=== PATIENT | female | born 1980 | race Asian ===

== ENCOUNTER → 2020-09-07 | Outpatient (CLI) | payer OTHER ==
[~2020-09-07] MED LIST: ISOVUE-370 76% 100ML VIAL As Ordered ONE
--- NOTE | 2020-09-07 18:24 | REPVR ---
PROCEDURE INFORMATION: Exam: CT Neck With Contrast Exam date and time: 09/07/2020 5:20 PM Age: 40 years old Clinical indication: Condition or disease; Other: Begin neoplasm of parotid glands TECHNIQUE: Imaging protocol: Computed tomography images of the neck with contrast. Radiation optimization: All CT scans at this facility use at least one of these dose optimization techniques: automated exposure control; mA and/or kV adjustment per patient size (includes targeted exams where dose is matched to clinical indication); or iterative reconstruction. Contrast material: ISOVUE 370; Contrast volume: 75 ml; Contrast route: INTRAVENOUS (IV); COMPARISON: No relevant prior studies available. FINDINGS: Nasopharynx: Unremarkable. Oropharynx: Unremarkable. No significant tonsillar enlargement. Hypopharynx: Unremarkable. Larynx: Unremarkable. Normal epiglottis. Retropharyngeal space: Unremarkable. Submandibular/Parotid glands: Heterogenous lesion in the right parotid gland measuring 1.6 x 1.3 x 1.9 cm with ill-defined margins and large calcifications. Thyroid: Normal. No enlarged or calcified nodules. Lymph nodes: Unremarkable. No lymphadenopathy. Trachea: Visualized trachea is unremarkable. Lungs: Unremarkable as visualized. Bones/joints: Unremarkable. No acute fracture. Soft tissues: Unremarkable. No significant soft tissue swelling. IMPRESSION: Heterogenous lesion in the right parotid gland measuring 1.6 x 1.3 x 1.9 cm with ill-defined margins and large calcifications. Differential includes pleomorphic adenoma/warthins tumor/mucoepidermoid carcinoma. ENT referral is recommended. Electronically signed by: Dean Browning On 09/07/2020 18:24:20 PM
== END ==
LOC: M RAD 17:03
PROVIDERS: ATTEND Otolaryngology
DX: D37.030 Neoplasm of uncertain behavior of the parotid salivary glands (principal)

== ENCOUNTER → 2020-10-23 | Outpatient (CLI) | payer OTHER ==
[~2020-10-23] MED LIST changes: -ISOVUE-370 76% 100ML VIAL As Ordered ONE; +LIDOCAINE 1% MDV 20ML VIAL As Ordered ONE; +MULT1TAB8 PO; +SODIUM BICARBONATE 8.4% INJ 50MEQ 50 ML VIAL As Ordered ONE
[2020-10-23 11:13] VITALS: BP 145/78
--- NOTE | 2020-10-23 18:45 | REP ---
INDICATION: RT PAROTID MASS. COMPARISON: None. TECHNIQUE: The procedure was performed by Anna Marie Harmon [facility], under the direct supervision of Dr. Mike. The risks and benefits of the procedure were explained to the patient and an informed consent was obtained both verbally and written. Directly prior to the start of the procedure a formal time-out was completed in the procedure room. FINDINGS: Using ultrasound guidance the right parotid mass was localized. Due to the location of the mass, and that it had a calcified rim it was determined that a fine needle aspiration would be the safest approach. The skin was prepped and draped in a sterile fashion. One mL of buffered lidocaine was used as a local anesthetic. Using ultrasound guidance a 8 fine needle aspirations were obtained using 25 gauge needles. Four specimens were sent to our lab here, and remaining 4 were sent out in RPMI solution, for further testing. The patient tolerated the procedure well and there were no immediate complications. After the appropriate amount of monitored convalescence the patient was discharged from the department. IMPRESSION: 1. Ultrasound-guided right parotid mass fine needle aspiration. <Electronically signed by Anna Marie Harmon > 10/23/20 1441 <Electronically signed by Trevin Mike > 10/23/20 1841
== END ==
LOC: M IRPRO 09:42
PROVIDERS: ATTEND Otolaryngology
DX: D37.030 Neoplasm of uncertain behavior of the parotid salivary glands (principal)

== ENCOUNTER 2021-01-29 08:25 | Observation (INO) | payer OTHER ==
[~2021-01-29] VITALS: Ht 157.5 cm; Wt 61.9 kg
[~2021-01-29 08:25] MED LIST changes: +CVS1CAP2 PO; +D31000TA2 PO; +FISH1000 PO; -LIDOCAINE 1% MDV 20ML VIAL As Ordered ONE; +LIDOCAINE 1% MDV 20ML VIAL SQ PRN; +LR 1,000 ML IV ONE; -SODIUM BICARBONATE 8.4% INJ 50MEQ 50 ML VIAL As Ordered ONE; +dexameTHASONE 4 MG/ML 1ML VIAL (J1100 PER 1MG) IV ONE
--- OUTSIDE RECORDS SUMMARY | 2021-01-29 08:30 | CCD | Continuity of Care Document ---
Author Author Idalia VILLARREAL MD Organization Unknown Address [address] [address] Phone [phone] Care Team Providers Care Medical Office Representative Name Role Phone MontanaMaria Eugenia Michelle Carter AUTM Problems Description No Information Available Social History Type Date Description Comments Sex Unknown ETOH Use Denies alcohol use Tobacco Use Start: Unknown Denies Smoking Recreational Drug Use Denies Drug Use Allergies, Adverse Reactions, Alerts Description No Known Drug Allergies Medications Active Medications SIG Qnty Indications Ordering Provide r Date Calcium Unknown Vitamin D-3 25mcg (1000 Ut) Capsules Unknown One-A-Day Womens Tablets 1 by mouth every day Unknown Fish Oil 1000mg Capsules Unknown Immunizations Description No Information Available Vital Signs Date Vital Result Comment 11/14/2020 7:09am Height 62 inches 5'2" Weight 103.00 lb BMI (Body Mass Index) 18.8 kg/m2 [place] Body Weight 110 lb Weight 46.721 kg BSA (Body Surface Area) 1.44 m2 09/19/2020 9:06am Height 62 inches 5'2" Weight 103.00 lb BMI (Body Mass Index) 18.8 kg/m2 [place] Body Weight 110 lb Weight 46.721 kg BSA (Body Surface Area) 1.44 m2 Results Test Acquired Date Facility Test Result H/L Range Note Laboratory test finding 10/23/2020 [facility] Main Lab [address] [place] [address] [phone] Non Homeworker/Cytology Req For Servi (SEE NOTE) 1 1 SPECIMEN: FNA Rig ht parotid PRMI and Cytolyt (clear) received SPECIMEN ADEQUACY: Satisfactory for evaluation CATEGORIZATION: Non-diagnostic DESCRIPTIONS: Specimen consists mainly of scattered lymphocytes and acellular debris. 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 Office Visit 09/19/2020 9:00a [facility] Vasiliy Villarreal MD 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 Office Visit 08/22/2020 10:30a [facility] Vasiliy Villarreal MD 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 Assessments Date Code Description Provider 11/14/2020 D37.030 Neoplasm of uncertai n behavior of the parotid salivary glands Vasiliy Villarreal MD 09/19/2020 D37.030 Neoplasm of uncertai n behavior of the parotid salivary glands Vasiliy Villarreal MD 09/19/2020 D49.0 Neoplasm of unspecified behavior of digestive system Vasiliy Villarreal MD 08/22/2020 D37.030 Neoplasm of uncertai n behavior of the parotid salivary glands Vasiliy Villarreal MD 08/22/2020 D49.0 Neoplasm of unspecified behavior of digestive system Vasiliy Villarreal MD Plan of Treatment Future Appointment(s):* 01/08/2021 10:45 am - Cuate Lott MD at [facility] * 01/08/2021 10:45 am - Vasiliy Villarreal MD at [facility] 11/14/2020 - Vasiliy Villarreal MD* 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 Management options include careful observation with repeat FNA versus right superficial parotidectomy with facial nerve preservation and intra-op facial nerve monitoring. Risks of surgery include but not limited to bleeding, infection, injury to facial nerve leading to transient or permanent facial paralysis, injury to contents of carotid space, seroma, skin numbness or paresthesia, Alberto's syndrome, recurrence of tumor and need for more surgery. Patient un derstands and wishes to proceed. Functional Status Description No Information Available Mental Status Description No Information Available Referrals Refer to Dr Reason for Referral Status Appt Date Cherelle, Vasiliy Ortiz MD LOCALIZED SWELLING MASS & L UMP HEAD OFFICE CONSULT NEW OR ESTAB PT (1) 08/11/2020-02/07/2021 OFFICE / OUTPATIENT ESTAB MINIMAL MO (3) 08/11/2020-08/11/2021 Scheduled 08/22/[address] [address] [phone]
--- OUTSIDE RECORDS SUMMARY | 2021-01-29 08:30 | CCD ---
Author Author [facility] Organization [facility] Address Unknown Phone Unavailable Care Team Providers Care Chain Offbearer Name Role Phone Marquita COLON GANG KNIFE FISH CHOPPER Unavailable Unavailable LAROCK, Marquita LEES GANG KNIFE FISH CHOPPER Unavailable Unavailable LAROCK, Marquita LEES GANG KNIFE FISH CHOPPER Unavailable Unavailable LAROCK, Marquita LEES GANG KNIFE FISH CHOPPER Unavailable Unavailable LAROCK, Marquita LEES GANG KNIFE FISH CHOPPER Unavailable Unavailable LAROCK, Marquita LEES GANG KNIFE FISH CHOPPER Unavailable Unavailable LAROCK, Marquita LEES GANG KNIFE FISH CHOPPER Unavailable Unavailable LAROCK, Marquita LEES GANG KNIFE FISH CHOPPER Unavailable Unavailable LAROCK, Marquita LEES GANG KNIFE FISH CHOPPER Unavailable Unavailable LAROCK, Marquita LEES GANG KNIFE FISH CHOPPER Unavailable Unavailable LAROCK, Marquita LEES GANG KNIFE FISH CHOPPER Unavailable Unavailable LAROCK, Marquita LEES GANG KNIFE FISH CHOPPER Unavailable Unavailable LAROCK, Marquita LEES GANG KNIFE FISH CHOPPER Unavailable Unavailable LAROCK, Marquita LEES GANG KNIFE FISH CHOPPER Unavailable Unavailable LAROCK, Marquita LEES GANG KNIFE FISH CHOPPER Unavailable Unavailable LAROCK, Marquita LEES GANG KNIFE FISH CHOPPER Unavailable Unavailable LAROCK, Marquita LEES GANG KNIFE FISH CHOPPER Unavailable Unavailable LAROCK, Marquita LEES GANG KNIFE FISH CHOPPER Unavailable Unavailable LAROCK, Marquita LEES GANG KNIFE FISH CHOPPER Unavailable Unavailable LAROCK, Marquita LEES GANG KNIFE FISH CHOPPER Unavailable Unavailable LAROCK, Marquita LEES GANG KNIFE FISH CHOPPER Unavailable Unavailable LAROCK, Marquita LEES GANG KNIFE FISH CHOPPER Unavailable Unavailable Marika VILLARREAL MD Unavailable Unavailable Marika VILLARREAL MD Unavailable Unavailable Marika VILLARREAL MD Unavailable Unavailable Marika VILLARREAL MD Unavailable Unavailable Marika VILLARREAL MD Unavailable Unavailable Marika VILLARREAL MD Unavailable Unavailable Marika VILLARREAL MD Unavailable Unavailable Marika VILLARREAL MD Unavailable Unavailable Marika VILLARREAL MD Unavailable Unavailable Marika VILLARREAL MD Unavailable Unavailable Marika VILLRAREAL MD Unavailable Unavailable Marika VILLARREAL MD Unavailable Unavailable Marika VILLARREAL MD Unavailable Unavailable Marika VILLARREAL MD Unavailable Unavailable Marika VILLARREAL MD Unavailable Unavailable Marika VILLARREAL MD Unavailable Unavailable Marika VILLARREAL MD Unavailable Unavailable Marika VILLARREAL MD Unavailable Unavailable Marika VILLARREAL MD Unavailable Unavailable TELLY, C JERRICA MD Unavailable Unavailable TELLY, C JERRICA MD Unavailable Unavailable TELLY, C JERRICA MD Unavailable Unavailable TELLY, C JERRICA MD Unavailable Unavailable TELLY, C JERRICA MD Unavailable Unavailable TELLY, C JERRICA MD Unavailable Unavailable TELLY, C JERRICA MD Unavailable Unavailable TELLY, C JERRICA MD Unavailable Unavailable TELLY, C JERRICA MD Unavailable Unavailable TELLY, C JERRICA MD Unavailable Unavailable TELLY, C JERRICA MD Unavailable Unavailable TELLY, C JERRICA MD Unavailable Unavailable TELLY, C JERRICA MD Unavailable Unavailable TELLY, C JERRICA MD Unavailable Unavailable TELLY, C JERRICA MD Unavailable Unavailable Re-disclosure Warning The records that you are about to access may contain information from federally-assisted alcohol or drug abuse programs. If such information is present, then the following federally mandated warning applies: This information has been disclosed to you from records protected by federal confidentiality rules (42 CFR part 2). The federal rules prohibit you from making any further disclosure of this information unless further disclosure is expressly permitted by the written consent of the person to whom it pertains or as otherwise permitted by 42 CFR part 2. A general authorization for the release of medical or other information is NOT sufficient for this purpose. The Federal rules restrict any use of the information to criminally investigate or prosecute any alcohol or drug abuse patient.The records that you are about to access may contain highly sensitive health information, the redisclosure of which is protected by Article 27-F of the [facility] Public Health law. If you continue you may have access to information: Regarding HIV / AIDS; Provided by facilities licensed or operated by the [facility] Office of Mental Health; or Provided by the [facility] Office for People With Developmental Disabilities. If such information is present, then the following [facility] mandated warning applies: This information has been disclosed to you from confidential records which are protected by state law. State law prohibits you from making any further disclosure of this information without the specific written consent of the person to whom it pertains, or as otherwise permitted by law. Any unauthorized further disclosure in violation of state law may result in a fine or detention sentence or both. A general authorization for the release of medical or other information is NOT sufficient authorization for further disc losure. Encounters Encounter Providers Location Date Indications Data Source(s ) Outpatient Attender: JERRICA Villarreal/Chuy/Bolivar/Reind umu 11/14/2020 07:00:00 AM EDT [facility] ([facility]) Outpatient Attender: JERRICA Villarreal/Chuy/Bolivar/Demetriced umu 09/19/2020 09:00:00 AM EDT [facility] ([facility]) Outpatient Attender: NABEEL COLON NP 09/04 12:11:43 PM EDT - 09/15/2020 12:31:39 PM EDT [facility] ([facility] ) Outpatient Attender: JERRICA Villarreal/Chuy/Bolivar/Demetriced umu 08/22/2020 10:30:00 AM EDT [facility] ([facility]) Immunizations Vaccine Date Status Description Data Source(s) COVID-19 VACCINE Moderna 09/14/2020 12:00:00 AM EDT completed [facility] Vaccine Series Complete: NOThis Data was Submitted to [facility]. COVID-19 VACCINE Moderna 08/17/2020 12:00:00 AM EDT completed [facility] Vaccine Series Complete: YESThis Data wa s Submitted to [facility]. Medications No Information Insurance Providers Payer name Policy type / Coverage type Policy ID Covered green party ID Covered green party's relationship to zeng Policy Zeng Plan Information DEANGELO HATHAWAY/DEANGELO [id number] Self 01 [id number] [facility] [id number] [facility] [id number] Problems, Conditions, and Diagnoses No Information Surgeries/Procedures Procedure Description Date Indications Data Source(s) OFFICE OUTPATIENT VISIT 25 MINUTES 11/14/2020 12:00:00 AM EDT [facility] ([facility], ) OFFICE OUTPATIENT VISIT 15 MINUTES 09/19/2020 12:00:00 AM EDT [facility] ([facility]) OFFICE OUTPATIENT NEW 30 MINUTES 08/22/2020 12:00:00 A M EDT [facility] ([facility]) Results ID Date Data Source [id number] 10/23/2020 11:37:00 AM EDT [facility] ([facility]) Name Value Range Interpretation Code Description Data Charla rce(s) Supporting Document(s) Microscopic observation [Identifier] in Unspecified specimen by Non- gynecological cytology method Laboratory test result [facility] ([facility]) SPECIMEN: FNA Right parotid PRMI and Cytolyt (clear) received SPECIMEN ADEQUACY: Satisfactory for evaluation CATEGORIZATION: Non-diagnostic DESCRIPTIONS: Specimen consists mainly of scattered lymphocytes and acellular debris. COMMENTS: 10/24/2020 - 813 Signed MARIALUISA ANDERS(ASCP) 10/24/2020 0747 (Prelim) Signed JONAH SIDDIQUI MD 10/24/202014 Procedure Social History No Information Vital Signs ID Date Data Source UNK Name Value Range Interpretation Code Description Data Source(s) Body height 62 [in_i] 62 [in_i] [facility] ([facility]) 5'2" Body weight 103.00 [lb_av] 103.00 [lb_av] [facility] ([facility]) Body mass index (BMI) [Ratio] 18.8 kg/m2 18.8 k g/m2 [facility] ([facility]) Odum body weight 110 [lb_av] 110 [lb_av] [facility] ([facility]) Body weight 46.721 kg 46.721 kg [facility] ([facility]) Body surface area Derived from formula 1.44 m2 1.44 m2 [facility] ([facility]) Body height 62 [in_i] 62 [in_i] [facility] ([facility]) 5'2" Body weight 103.00 [lb_av] 103.00 [lb_av] [facility] ([facility]) Body surface area Derived from formula 1.44 m2 1.44 m2 [facility]) Body mass index (BMI) [Ratio] 18.8 kg/m2 18.8 k g/m2 [facility]) Odum body weight 110 [lb_av] 110 [lb_av] [facility] ([facility]) Body weight 46.721 kg 46.721 kg [facility] ([facility]) Body height 62 [in_i] 62 [in_i] [facility] 5'2" Body weight 103.00 [lb_av] 103.00 [lb_av] [facility] ([facility]) Body mass index (BMI) [Ratio] 18.8 kg/m2 18.8 k g/m2 [facility] ([facility]) Odum body weight 110 [lb_av] 110 [lb_av] [facility] ([facility]) Body weight 46.721 kg 46.721 kg [facility] ([facility]) Body surface area Derived from formula 1.44 m2 1.44 m2 [facility] ([facility]) Body surface area Derived from formula 1.44 m2 1.44 m2 [facility] ([facility]) Body weight 46.267 kg 46.267 kg [facility] ([facility]) Body height 62 [in_i] 62 [in_i] [facility] ([facility]) 5'2" Body weight 102.00 [lb_av] 102.00 [lb_av] [facility] ([facility]) Body mass index (BMI) [Ratio] 18.7 kg/m2 18.7 k g/m2 [facility] ([facility]) Odum body weight 110 [lb_av] 110 [lb_av] [facility] ([facility])
--- OUTSIDE RECORDS SUMMARY | 2021-01-29 08:30 | CCD | Continuity of Care Document ---
Author Author Idalia VILLARREAL MD Organization Unknown Address [address] [address] Phone [phone] Care Team Providers Care Naval Marine Engineer Name Role Phone MontanaMaria Eugenia Michelle Carter AUTM [phone] Problems Description No Information Available Social History [...] lb BMI (Body Mass Index) 18.8 kg/m2 [place] Body Weight 110 lb Weight 46.721 kg BSA (Body Surface Area) 1.44 m2 09/19/2020 9:06am Height 62 inches 5'2" Weight 103.00 lb BMI (Body Mass Index) 18.8 kg/m2 [place] Body Weight 110 lb Weight 46.721 kg BSA (Body Surface Area) 1.44 m2 Results Test Acquired Date Facility Test Result H/L Range Note Laboratory test finding 10/23/2020 [facility] Main Lab [address] [place] [address] [phone] Non Talent Acquisition Specialist/Cytology Req For Servi (SEE NOTE) 1 1 SPECIMEN: FNA Rig ht parotid PRMI and Cytolyt (clear) received SPECIMEN ADEQUACY: Satisfactory for evaluation CATEGORIZATION: Non-diagnostic DESCRIPTIONS: Specimen consists mainly of scattered lymphocytes and acellular debris. 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 Management options include careful observation with repeat FNA versus right parotidectomy with facial nerve preservation and intra-op facial nerve monitoring. Risks of surgery include but not limited to bleeding, infection, injury to facial nerve leading to transient or permanent facial paralysis, injury to contents of carotid space, seroma, skin numbness or paresthesia, Alberto's syndrome, recurrence of tumor and need for more surgery. Patient understands and wishes to proceed. Functional Status Description No Information Available Mental Status Description No Information Available Referrals Refer to Dr Reason for Referral Status Appt Date Vasiliy Villarrael MD LOCALIZED SWELLING MASS & L UMP HEAD OFFICE CONSULT NEW OR ESTAB PT (1) 08/11/2020-02/07/2021 OFFICE / OUTPATIENT ESTAB MINIMAL CT (3) 08/11/2020-08/11/2021 Scheduled 08/22/2020 [address] [place] [address] [phone]
[2021-01-29] MEDS ORDERED: ONDANSETRON 4MG/2ML VIAL As Ordered ONE (10:18)
[2021-01-29] MEDS ORDERED: METOCLOPRAMIDE INJ 10MG/2ML VIAL (J2765 PER 1) As Ordered ONE (10:18)
[2021-01-29] MEDS ORDERED: ROCURONIUM BROMIDE 50 MG/5 ML VIAL As Ordered ONE (10:18)
[2021-01-29] MEDS ORDERED: MIDAZOLAM INJ 2MG/2ML VIAL (J2250 PER 1MG) As Ordered ONE (10:18)
[2021-01-29] MEDS ORDERED: LIDOCAINE 2% 100MG/5ML SDV (FOR ANES.) As Ordered ONE (10:18)
[2021-01-29] MEDS ORDERED: ACETAMINOPHEN 1000MG 100ML IV BTL (OFIRMEV) (J0131 PER 10MG) As Ordered ONE (10:18)
[2021-01-29] MEDS ORDERED: fentaNYL 100 MCG/2 ML INJECTION (J3010) As Ordered ONE (10:18)
[2021-01-29] MEDS ORDERED: propofoL 200 MG/20 ML VIAL As Ordered ONE (10:18)
[2021-01-29] MEDS ORDERED: LIDOCAINE W/EPINEPHRINE 1% 20ML VIAL As Ordered ONE (10:22)
[2021-01-29] MEDS ORDERED: BACITRACIN OINTMENT 30GM TUBE As Ordered ONE (10:22)
[2021-01-29] MEDS ORDERED: EPINEPHrine 1MG/ML INJ 30ML MD-VIAL As Ordered ONE (13:10)
[2021-01-29] MEDS ORDERED: HYDROmorphone HCL 2 MG/ML 1ML VIAL As Ordered ONE (13:51)
[2021-01-29] MEDS ORDERED: CEFUROXIME INJ 1.5 GM VIAL (J0697 PER 750MG) As Ordered ONE (16:54)
[2021-01-29] MEDS ORDERED: PHENYLephrine 500MCG 5ML (100MCG/ML) SYRINGE As Ordered ONE (17:06)
[2021-01-29] MEDS ORDERED: ePHEDrine SULFATE 25 MG/5 ML(5MG/ML) SYRINGE As Ordered ONE (17:16)
[2021-01-29] MEDS ORDERED: DESFLURANE 240 ML INHALANT As Ordered ONE (17:21)
[2021-01-29] MEDS ORDERED: fentaNYL 100 MCG/2 ML INJECTION (J3010) IV PRN (19:55)
[2021-01-29] MEDS ORDERED: LR 1,000 ML IV SCH (19:55)
[2021-01-29] MEDS ORDERED: ONDANSETRON 4MG/2ML VIAL IV PRN (19:55)
[2021-01-29] MEDS ORDERED: oxyCODONE 5MG TAB PO PRN (19:55)
[2021-01-29 20:20] VITALS: BP 113/57
--- NOTE | 2021-01-29 20:43 | HPEPDOC ---
[facility] Medical History & Physical Date of Admission Jan 29, 2021 Date of Service: Jan 29, 2021 History and Physical CHIEF COMPLAINT: Postoperative observation HISTORY OF PRESENT ILLNESS: 40-year-old female underwent surgery with ENT doctor Bruce, AFTER the procedure asking for me to admit the patient for observation overnight in the PCU as the surgery was prolonged took about 7-8 hours to ensure no immediate postoperative competitions. I saw the patient in PACU she was awake and alert and is able to answer my questions appropriately she tells me she is feeling well she is not in any pain. PAST MEDICAL/SURGICAL HISTORY: She denies any past medical or surgical history SOCIAL HISTORY: Denies alcohol use Denies tobacco use Denies illicit drug use FAMILY HISTORY: Denies any family history of cancer unaware of any other past medical history in her parents or siblings ALLERGIES: Please see below. REVIEW OF SYSTEMS: 10 point review of systems complete all negative otherwise stated in HPI HOME MEDICATIONS: Please see below. PHYSICAL EXAMINATION: Constitutional: Pleasant, Awake and alert, in no apparent distress ENT: Sclera are clear. Respiratory: Lungs CTA bilaterally. No respiratory distress. No use of accessory muscles. Able to speak in full sentences Cardiovascular: RRR S1 and S2 are normal Gastrointestinal: Abdomen is soft, non distended, non tender Musculoskeletal: No lower extremity edema. Neurologic: No focal neurological deficit. Mental Status: A&O x3, normal affect Skin: Head is bandaged around her right parotid area postoperatively LABORATORY DATA: See below. IMAGING: See chart MICROBIOLOGY: Please see below. ASSESSMENT/PLAN 40-year-old female who underwent right parotidectomy with ENT on 01/29/21 admitted for post operative observation. # Post parotidectomy: Admit to PCU per ENT for observation overnight. 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 IV dexamethasone and cefuroxime per ENT. Wound care per ENT. Pain control with oxycodone. IVFs. # DVT prophylaxis: SCDs/TEDs A Youse[facility] Hospitalist Vital Signs Vital Signs Date Time Temp Pulse Resp B/P (MAP) Pulse Ox O2 Delivery O2 Flow Rate FiO2 01/29/21 20:05 98.1 86 16 110/60 (77) 99 Nasal Cannula 2.0 Home Medications Scheduled Cholecalciferol (Vitamin D3) (Vitamin D3) 1,000 Unit Tablet, 2,000 UNITS PO DAILY Lactobacillus Combo No.10 (Probiotic) 1 Each Capsule, 1 CAP PO DAILY Multivitamin (Multi-Vitamin Daily) 1 Each Tablet, 1 TAB PO DAILY Harvey-3 Fatty Acids/Fish Oil (Fish Oil 1,000 mg Capsule) 1 Each Capsule, 1,000 MG PO DAILY Allergies Coded Allergies: No Known Allergies (Unverified , 01/16/21) RAMON ISABEL MD Jan 29, 2021 20:43
[2021-01-29] MEDS: LR 1,000 ML IV SCH (20:47)
--- OUTSIDE RECORDS SUMMARY | 2021-01-29 20:51 | CCD ---
Author Author [facility] Organization [facility] Address Unknown Phone Unavailable Care Team Providers Care Customizer Name Role Phone Marquita COLON CATECHIST Unavailable Unavailable LAROCK, Marquita LEES CATECHIST Unavailable Unavailable LAROCK, Marquita LEES CATECHIST Unavailable Unavailable LAROCK, Marquita LEES CATECHIST Unavailable Unavailable LAROCK, Marquita LEES CATECHIST Unavailable Unavailable LAROCK, Marquita LEES CATECHIST Unavailable Unavailable LAROCK, Marquita LEES CATECHIST Unavailable Unavailable LAROCK, Marquita LEES CATECHIST Unavailable Unavailable LAROCK, Marquita LEES CATECHIST Unavailable Unavailable LAROCK, Marquita LEES CATECHIST Unavailable Unavailable LAROCK, Marquita LEES CATECHIST Unavailable Unavailable LAROCK, Marquita LEES CATECHIST Unavailable Unavailable LAROCK, Marquita LEES CATECHIST Unavailable Unavailable LAROCK, Marquita LEES CATECHIST Unavailable Unavailable LAROCK, Marquita LEES CATECHIST Unavailable Unavailable LAROCK, Marquita LEES CATECHIST Unavailable Unavailable LAROCK, Marquita LEES CATECHIST Unavailable Unavailable LAROCK, Marquita LEES CATECHIST Unavailable Unavailable LAROCK, Marquita LEES CATECHIST Unavailable Unavailable LAROCK, Marquita LEES CATECHIST Unavailable Unavailable LAROCK, Marquita LEES CATECHIST Unavailable Unavailable LAROCK, Marquita LEES CATECHIST Unavailable Unavailable Marika VILLARREAL MD Unavailable Unavailable [...] Unavailable Unavailable Marika VILLARREAL MD Unavailable Unavailable aMrika VILLARREAL MD Unavailable Unavailable Marika VILLARREAL MD [...] is protected by Article 27-F of the [facility] Public Health law. If you continue you may have access to information: Regarding HIV / AIDS; Provided by facilities licensed or operated by the [facility] Office of Mental Health; or Provided by the [facility] Office for People With Developmental Disabilities. If such information is present, then the following [facility] mandated warning applies: This information [...] law may result in a fine or alf sentence or both. A general authorization for the release of medical or other information is NOT sufficient authorization for further disc losure. Encounters Encounter Providers Location Date Indications Data Source(s ) Outpatient Attender: JERRICA Villarreal/Chuy/[place]/Reind umu 11/14/2020 07:00:00 AM EDT [facility] ([facility]) Outpatient Attender: JERRICA Villarreal/Chuy/[place]/Demetriced [facility] 09/19/2020 09:00:00 AM EDT [facility] ([facility]) Outpatient Attender: NABEEL COLON NP 09/04 12:11:43 PM EDT - 09/15/2020 12:31:39 PM EDT [facility] ([facility] ) Outpatient Attender: JERRICA Villarreal/Chuy/[place]/Demetriced [facility] 08/22/2020 10:30:00 AM EDT [facility] ([facility]) Immunizations Vaccine Date Status Description Data Source(s) COVID-19 VACCINE Moderna 09/14/2020 12:00:00 AM EDT completed [facility] Vaccine Series Complete: NOThis Data was Submitted to [facility] Via [facility]. COVID-19 VACCINE Moderna 08/17/2020 12:00:00 AM EDT completed [facility] Vaccine Series Complete: YESThis Data wa s Submitted to [facility] Via [employer]. Medications No Information Insurance Providers Payer name Policy type / Coverage type Policy ID Covered democrat ID Covered democrat's relationship to zeng Policy Zeng Plan Information DEANGELO HATHAWAY/DEANGELO [id number] Self 01 [id number] [facility] [id number] [facility] [id number] Problems, Conditions, and Diagnoses No Information Surgeries/Procedures Procedure Description Date Indications Data Source(s) OFFICE OUTPATIENT VISIT 25 MINUTES 11/14/2020 12:00:00 AM EDT [facility] ([facility], ) OFFICE OUTPATIENT VISIT 15 MINUTES 09/19/2020 12:00:00 AM EDT [facility] ([facility]) OFFICE OUTPATIENT NEW 30 MINUTES 08/22/2020 12:00:00 A M EDT [facility] ([facility]) Results ID Date Data Source [id number] 10/23/2020 11:37:00 AM EDT [facility] ([facility]) Name Value Range Interpretation Code Description Data Charla rce(s) Supporting Document(s) Microscopic observation [Identifier] in Unspecified specimen by Non- gynecological cytology method Laboratory test result [facility] ([facility]) SPECIMEN: FNA Right parotid PRMI and Cytolyt [...] Source(s) Body height 62 [in_i] 62 [in_i] [facility] ([facility]) 5'2" Body weight 103.00 [lb_av] 103.00 [lb_av] [facility] ([facility]) Body mass index (BMI) [Ratio] 18.8 kg/m2 18.8 k g/m2 [facility] ([facility]) [place] body weight 110 [lb_av] 110 [lb_av] [facility] ([facility]) Body weight 46.721 kg 46.721 kg [facility] ([facility]) Body surface area Derived from formula 1.44 m2 1.44 m2 [facility] ([facility]) Body height 62 [in_i] 62 [in_i] [facility] ([facility]) 5'2" Body weight 103.00 [lb_av] 103.00 [lb_av] [facility] ([facility]) Body surface area Derived from formula 1.44 m2 1.44 m2 [facility]) Body mass index (BMI) [Ratio] 18.8 kg/m2 18.8 k g/m2 [facility]) [place] body weight 110 [lb_av] 110 [lb_av] [facility] ([facility]) Body weight 46.721 kg 46.721 kg [facility] ([facility]) Body height 62 [in_i] 62 [in_i] [facility] 5'2" Body weight 103.00 [lb_av] 103.00 [lb_av] [facility] ([facility]) Body mass index (BMI) [Ratio] 18.8 kg/m2 18.8 k g/m2 [facility] ([facility]) [place] body weight 110 [lb_av] 110 [lb_av] [facility] ([facility]) Body weight 46.721 kg 46.721 kg [facility] ([facility]) Body surface area Derived from formula 1.44 m2 1.44 m2 [facility] ([facility]) Body surface area Derived from formula 1.44 m2 1.44 m2 [facility] ([facility]) Body weight 46.267 kg 46.267 kg [facility] ([facility]) Body height 62 [in_i] 62 [in_i] [facility] ([facility]) 5'2" Body weight 102.00 [lb_av] 102.00 [lb_av] [facility] ([facility]) Body mass index (BMI) [Ratio] 18.7 kg/m2 18.7 k g/m2 [facility] ([facility]) [place] body weight 110 [lb_av] 110 [lb_av] [facility] ([facility])
[2021-01-29] MEDS ORDERED: EMER1PAK PO (21:33)
[2021-01-29] MEDS ORDERED: HOME MED LIST COMPLETE! XX SCH (21:35)
[2021-01-29] MEDS: dexameTHASONE 4 MG/ML 1ML VIAL (J1100 PER 1MG) IV SCH (21:47)
[2021-01-29 22:20] VITALS: BP 113/62
[2021-01-30] VITALS (9 sets, daily range): BP systolic 98–130; BP diastolic 52–77
[2021-01-30 04:53] LABS: HEMATOCRIT 32.6 % (36.0-47.0); MEAN CORPUSCULAR HEMOGLOBIN 29.4 pg (27.0-33.0); MEAN CORPUSCULAR HGB CONC 33.7 g/dl (32.0-36.5); MEAN CORPUSCULAR VOLUME 87.2 fl (80.0-96.0); PLATELET COUNT, AUTOMATED 172 10^3/uL (150-450); RED BLOOD COUNT 3.74 10^6/uL (4.00-5.40); WHITE BLOOD COUNT 11.9 10^3/uL (4.0-10.0)
[2021-01-30] MEDS: LR 1,000 ML IV SCH (04:58)
[2021-01-30] MEDS: dexameTHASONE 4 MG/ML 1ML VIAL (J1100 PER 1MG) IV SCH (04:58)
[2021-01-30 05:14] LABS: ALBUMIN 2.9 GM/DL (3.2-5.2); ALT/SGPT 17 U/L (12-78); BILIRUBIN,TOTAL 0.5 MG/DL (0.2-1.0); BLOOD UREA NITROGEN 11 MG/DL (7-18); CALCIUM LEVEL 8.4 MG/DL (8.5-10.1); CARBON DIOXIDE LEVEL 29 MEQ/L (21-32); CHLORIDE LEVEL 109 MEQ/L (98-107); CREATININE FOR GFR 0.61 MG/DL (0.55-1.30); GLOMERULAR FILTRATION RATE > 60.0 (>58); GLUCOSE, FASTING 135 MG/DL (70-100); MAGNESIUM LEVEL 1.7 MG/DL (1.8-2.4); POTASSIUM SERUM 4.6 MEQ/L (3.5-5.1); SODIUM LEVEL 142 MEQ/L (136-145); TOTAL PROTEIN 5.7 GM/DL (6.4-8.2)
[2021-01-30] MEDS ORDERED: MAG SULF 1GM/100ML (MAG RUN) 1 GM in IV 1 EA IV ONE (09:00)
[2021-01-30] MEDS ORDERED: AUGM875T28 PO (13:40)
--- NOTE | 2021-01-30 15:19 | DS.PDOC ---
Discharge Summary General Date of Admission Jan 29, 2021 at 08:26 Date of Discharge 01/30/21 Discharge Summary PROCEDURES PERFORMED DURING STAY: right parotidectomy DISCHARGE DIAGNOSES: 1. s/p right parotidectomy for right parotid mass COMPLICATIONS/CHIEF COMPLAINT: Right Parotid Mass. HPI/Hospital Course: 40-year-old female underwent surgery with ENT doctor Bruce, AFTER the procedure request to admit the patient for observation overnight in the PCU as the surgery was prolonged took about 7-8 hours to ensure no immediate postoperative competitions. Admit to PCU per ENT for observation overnight. 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 IV dexamethasone and cefuroxime per ENT. Wound care per ENT. Pain control with oxycodone. IVFs. The following day patient was seen and examined at bedside. No acute overnight events reported. Patient voice no medical complaints. Case discussed with ENT, with recommendations for discharge home with oral antibiotics, and outpatient follow up. DISCHARGE MEDICATIONS: Please see below. ALLERGIES: Please see below. PHYSICAL EXAMINATION ON DISCHARGE: General: Pleasant, Awake and alert, in no apparent distress ENT: Sclera are clear. Respiratory: Lungs CTA bilaterally. No respiratory distress. No use of accessory muscles. Able to speak in full sentences Cardiovascular: RRR S1 and S2 are normal Gastrointestinal: Abdomen is soft, non distended, non tender Musculoskeletal: No lower extremity edema. Neurologic: No focal neurological deficit. Mental Status: A&O x3, normal affect Skin: Head is bandaged around her right parotid area postoperatively LABORATORY DATA: Please see below. ACTIVITY: [As tolerated]. DISPOSITION: 01 Home, Self-Care. DISCHARGE INSTRUCTIONS: 1. Follow up with PCP in 3-5 days. 2. Follow up with ENT as directed. DISCHARGE CONDITION: [Stable]. TIME SPENT ON DISCHARGE: 35minutes. Vital Signs/I&Os Vital Signs Date Time Temp Pulse Resp B/P (MAP) Pulse Ox O2 Delivery O2 Flow Rate FiO2 01/30/21 14:34 98.6 76 16 116/67 (83) 100 01/30/21 14:12 Room Air 01/29/21 20:05 2.0 I&O- Last 24 Hours up to 6 AM 01/30/21 06:00 Intake Total 3430 ml Output Total 850 ml Balance 2580 ml Laboratory Data Labs 24H Laboratory Tests 2 01/30/21 04:20: Nucleated Red Blood Cells % (auto) 0.0, Anion Gap 4L, Glomerular Filtration Rate > 60.0, Calcium Level 8.4L, Magnesium Level 1.7L, Total Bilirubin 0.5, Aspartate Amino Transf (AST/SGOT) 12, Alanine Aminotransferase (ALT/SGPT) 17, Alkaline Phosphatase 31L, Total Protein 5.7L, Albumin 2.9L, Albumin/Globulin Ratio 1.0L CBC/BMP Laboratory Tests 01/30/21 04:20 Discharge Medications Scheduled Amoxicillin/Potassium Clav (Augmentin 875-125 Tablet) 1 Each Tablet, 1 TAB PO BID Cholecalciferol (Vitamin D3) (Vitamin D3) 1,000 Unit Tablet, 2,000 UNITS PO DAILY, (Reported) Lactobacillus Combo No.10 (Probiotic) 1 Each Capsule, 1 CAP PO DAILY, (Reported) Multivitamin (Multi-Vitamin Daily) 1 Each Tablet, 1 TAB PO DAILY, (Reported) [place]-3 Fatty Acids/Fish Oil (Fish Oil 1,000 mg Capsule) 1 Each Capsule, 1,000 MG PO DAILY, (Reported) Scheduled PRN Ascorbic Acid/Multivit-Min (Emergen-C 1,000 mg Packet) 1,000 Mg Effpowdpkt, 1 [place] PO DAILY PRN for COLD SYMPTOMS, (Reported) Allergies Coded Allergies: No Known Allergies (Unverified , 01/16/21) TRACY GAYLE MD Jan 30, 2021 15:19
[2021-01-31] MEDS ORDERED: INFLUENZA QUADRIVALENT PF VACCINE 0.5ML SYRINGE IM ONE (09:00)
--- NOTE | 2021-03-13 16:59 | RO ---
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 PROCEDURE PERFORMED: Deep right parotidectomy with preservation of facial nerve. SURGEON: Vasiliy Villarreal MD [employer] MANAGER: Darnell Chowdhury PA-C ANESTHESIA: General without use of paralytics. INTRAOPERATIVE FINDINGS: Multiple sialoliths noted in the deep right parotid. Multiple upper branches of the right facial nerve identified and carefully preserved. CLINICAL PREAMBLE: This is a 40-year-old woman who presented to the office complaining of slowly enlarging right parotid gland. CT neck shows evidence of right parotid mass with calcification concerning for possible malignancy potential. FNA was unfruitful. Management options including right parotidectomy have been discussed with the patient. She understood and consented to the procedure. DESCRIPTION OF PROCEDURE: The patient was identified in preholding and had the right face marked. She was brought to the operating room in stable condition. She was placed in supine position on the operating table. The patient received general anesthesia followed by orotracheal intubation with out incident. No further paralytic agent was used throughout the entire case. The patient was prepped and draped in usual fashion for the procedure to expose the entire right face. Electrodes were attached to the right lateral ____ region and right lateral lip commissure area as well. Topical ground electrodes were attached to the forehead and ground electrodes attached to the shoulders. The electrodes were successfully connected to the Nirvana nerve monitoring device. Good electrical signals were obtained upon tapping of the appropriate facial regions. The patient was prepped and draped in usual fashion for the procedure. The modified Vasyl incision was outlined over the right parotid region. An inferior incision was extended 2 fingersbreadth below the angle of the right mandible. The skin flap was then developed over the parotid fascia beyond the anterior margin of the palpable right parotid masses. This time the anterior border of the sternocleidomastoid muscle was identified and dissected. The posterior digastric muscle was also identified and dissected. The right parotid was dissected out from the sternocleidomastoid muscle as well. The cartilaginous portion of the external auditory canal was dissected as well down to the tragal pointer. Dissection was carried out to approximately 1 cm anterior and deep to the tragal pointer. The pes anserinus was then successfully identified. Careful dissection was carried out along the superior inferior bifurcation of the facial nerve. The parotid masses were palpated and found to be deep to the point of the facial nerve. The approximately six branches of the facial nerve in the superior aspect of the parotid gland were carefully identified and dissected with preservation of its function. The parotidectomy was successfully performed with 1 cm margin around the mass. The hard mass was palpated and found to contain round smooth sialocele. The entire specimen was successfully delivered en bloc. At this point careful hemostasis was achieved using bipolar electrocautery and vascular clips as well. The facial nerve branches were found to be stimulatable with ____06:59 200 at the end of the case. 1/4 inch Terry was inserted into the parotid bed region. The skin incision was then closed in two layers with 4-0 Vicryl to close the deep layer and 5-0 Prolene to close the skin incision. At the end of the procedure sponge and instruments counts were correct. No complications. Estimated blood loss was approximately 75 mL. General anesthesia was reversed and the patient was extubated and brought to the recovery room in stable condition. In the recovery area the patient exhibited symmetrical facial motion as there was in the eyelids.
== END 2021-01-30 14:50 | disposition home or self-care (01) ==
LOC: M SDC 08:25 → M PCU 08:26
PROVIDERS: ADMIT Family Medicine; ATTEND Internal Medicine
DX: K11.5 Sialolithiasis (principal); K11.23 Chronic sialoadenitis; Z79.899 Other long term (current) drug therapy; Z79.2 Long term (current) use of antibiotics
CPT/HCPCS: 36415; 42420; 80053; 83735; 85027; 88307; 96365; 96375; 96376; 97161; 97165; 97530; J0131; J0697; J1100; J1170; J2250; J2370; J2405; J2765; J3010; J3475